=== PATIENT | male | born 1980 | race Caucasian/White ===

== ENCOUNTER 2016-09-25 14:27 | Emergency (ER) | payer SELFPAY ==
[~2016-09-25] VITALS: Ht 175.3 cm; Wt 72.1 kg
[2016-09-25] MEDS ORDERED: NKM (14:36)
[2016-09-25] MEDS ORDERED: Morphine Sulfate 2mg/ml Inj IVP ONE ×2 (14:45→16:30)
[2016-09-25 15:33] LABS: BASOPHILS % (AUTO) 0.7 % (0.0-2.0); EOSINOPHILS % (AUTO) 0.7 % (0.0-3.0); LYMPHOCYTES % (AUTO) 15.1 % (20.0-45.0); MEAN CORPUSCULAR HEMOGLOBIN 28.5 PG (27.0-31.0); MEAN CORPUSCULAR HGB CONC 32.5 G/DL (32.0-36.0); MEAN CORPUSCULAR VOLUME 88 FL (80-99); MEAN PLATELET VOLUME 7.8 FL (6.5-10.1); MONOCYTES % (AUTO) 8.1 % (1.0-10.0); NEUTROPHILS % (AUTO) 75.3 % (45.0-75.0); PLATELET COUNT 244 K/UL (150-450); RED BLOOD COUNT 5.87 M/UL (4.70-6.10); RED CELL DISTRIBUTION WIDTH 12.1 % (11.6-14.8); WHITE BLOOD COUNT 10.5 K/UL (4.8-10.8)
[2016-09-25] MEDS ORDERED: Famotidine 20 MG/ 2ML VIAL IVP ONE (15:45)
[2016-09-25 15:46] LABS: ALANINE AMINOTRANSFERASE 11 U/L (3-41); ANION GAP 16 (5-15); ASPARTATE AMINO TRANSFERASE 30 U/L (5-40); CALCIUM 10.1 mg/dL (8.6-10.2); CARBON DIOXIDE 28 mEQ/L (20-30); CHLORIDE 97 mEQ/L (98-107); CREATININE 1.2 mg/dL (0.7-1.2); GLOMERULAR FILTRATION RATE > 60 mL/min (>60); HEMOLYSIS 34; LIPASE 25 U/L (< 60); SODIUM 141 mEQ/L (135-145); TOTAL PROTEIN 8.6 g/dL (6.6-8.7)
[2016-09-25] MEDS ORDERED: PEPCID40 MG PO (16:23)
[2016-09-25] MEDS ORDERED: TYLENOL EXTRA500 MG ORAL (16:23)
[2016-09-25 17:03] VITALS: BP 121/76
--- NOTE | 2016-09-25 17:20 | Diagnostic Imaging Report ---
Indication: Chest pain Technique: One view of the chest Comparison: none Findings: Lungs and pleural spaces are clear. Heart size is normal. Impression: No acute process
--- NOTE | 2016-09-25 18:44 | Emergency Room Report ---
History of Present Illness General Chief Complaint: Abdominal Pain Source: Patient Present Illness HPI The patient is a 35-year-old male with history of HIV presenting for upper abdominal pain which began today. Patient denies any other medical conditions. Patient states pain is a 10 out of 10 dull ache to the mid upper abdomen. Patient states pain radiates "everywhere". The patient states that he has not had this type of pain before. The patient is unsure why the pain began. Patient does admit to nausea but denies vomiting, diarrhea, constipation, rash, fever, chills, sweats, chest pain, shortness of breath Allergies: Coded Allergies: No Known Allergies (Unverified , 09/25/16) Patient History Past Medical History: see triage record Pertinent Family History: none Reviewed Nursing Documentation: PMH: Agreed, PSxH: Agreed Review of Systems All Other Systems: negative except mentioned in HPI Physical Exam Vital Signs Date Time Temp Pulse Resp B/P Pulse Ox O2 Delivery O2 Flow Rate FiO2 09/25/16 14:30 97.9 116 28 100 Room Air 09/25/16 17:03 121/76 Sp02 EP Interpretation: reviewed, normal General Appearance: no apparent distress, alert, GCS 15, non-toxic Head: normocephalic, atraumatic Eyes: bilateral eye PERRL, bilateral eye normal inspection ENT: hearing grossly normal, normal pharynx, no angioedema, normal voice Neck: full range of motion, supple/symm/no masses Respiratory: chest non-tender, lungs clear, normal breath sounds, speaking full sentences Cardiovascular #1: regular rate, rhythm, no edema Gastrointestinal: normal inspection, normal bowel sounds, soft, non-distended, no guarding, tenderness - epigastric Genitourinary: normal inspection, no CVA tenderness Musculoskeletal: back normal, gait/station normal, normal range of motion, non- tender Neurologic: alert, oriented x3, responsive, motor strength/tone normal, sensory intact, speech normal Psychiatric: judgement/insight normal, memory normal, mood/affect normal, no suicidal/homicidal ideation Skin: normal color, no rash, warm/dry, well hydrated Lymphatic: no adenopathy Medical Decision Making PA Attestation Dr. Lyman is my supervising physician. Patient management was discussed with my supervising physician Diagnostic Impression: Primary Impression: Gastroenteritis ER Course The patient is a 35-year-old male presenting for upper abdominal pain which began today. Differential diagnoses considered include but not limited to gastroenteritis, pancreatitis, appendicitis, UTI, drug abuse PE: vitals WNL. afebrile. Abdomen is soft. There is tenderness to palpation over epigastric region only. No guarding. Nondistended. Normal bowel sounds Skin is warm and dry. No discoloration. Labs: CBC and CMP unremarkable. Patient refused to give urine. The patient is given IV fluids, Zofran, Pepcid, and morphine and is feeling better. The patient continuously asks for stronger pain medications but is visibly relaxing on the gurney. No apparent distress. The patient will be discharged home with a prescription for Pepcid and will follow up with primary doctor. ER precautions are given Laboratory Tests Test 09/25/16 15:15 White Blood Count 10.5 K/UL (4.8-10.8) Red Blood Count 5.87 M/UL (4.70-6.10) Hemoglobin 16.7 G/DL (14.2-18.0) Hematocrit 51.4 % (42.0-52.0) Mean Corpuscular Volume 88 FL (80-99) Mean Corpuscular Hemoglobin 28.5 PG (27.0-31.0) Mean Corpuscular Hemoglobin Concent 32.5 G/DL (32.0-36.0) Red Cell Distribution Width 12.1 % (11.6-14.8) Platelet Count 244 K/UL (150-450) Mean Platelet Volume 7.8 FL (6.5-10.1) Neutrophils (%) (Auto) 75.3 % (45.0-75.0) H Lymphocytes (%) (Auto) 15.1 % (20.0-45.0) L Monocytes (%) (Auto) 8.1 % (1.0-10.0) Eosinophils (%) (Auto) 0.7 % (0.0-3.0) Basophils (%) (Auto) 0.7 % (0.0-2.0) Sodium Level 141 mEQ/L (135-145) Potassium Level 4.0 mEQ/L (3.4-4.9) Chloride Level 97 mEQ/L (98-107) L Carbon Dioxide Level 28 mEQ/L (20-30) Anion Gap 16 (5-15) H Blood Urea Nitrogen 19 mg/dL (7-23) Creatinine 1.2 mg/dL (0.7-1.2) Estimate Glomerular Filtration Rate > 60 mL/min (>60) Glucose Level 94 mg/dL (74-106) Calcium Level 10.1 mg/dL (8.6-10.2) Total Bilirubin 0.5 mg/dL (0.0-1.2) Aspartate Amino Transferase (AST) 30 U/L (5-40) Alanine Aminotransferase (ALT) 11 U/L (3-41) Alkaline Phosphatase 75 U/L (40-129) Total Protein 8.6 g/dL (6.6-8.7) Albumin 4.5 g/dL (3.5-5.2) Globulin 4.1 g/dL Albumin/Globulin Ratio 1.0 (1.0-2.7) Lipase 25 U/L (< 60) Lab Results Impression CBC and CMP unremarkable. Patient refused to give urine. Last Vital Signs Date Time Temp Pulse Resp B/P Pulse Ox O2 Delivery O2 Flow Rate FiO2 09/25/16 17:03 97.8 78 28 121/76 100 Room Air Status: improved Disposition: HOME, SELF-CARE Condition: Improved Scripts Acetaminophen* (TYLENOL EXTRA STRENGTH*) 500 Mg Tablet 500 MG ORAL Q8H Y for Prn Headache/Temp > 101, #30 TAB 0 Refills Prov: MAX HINKLE 09/25/16 Famotidine (PEPCID) 40 Mg Tablet 40 MG PO DAILY, #7 TAB 0 Refills Prov: MAX HINKLE 09/25/16 Patient Instructions: Abdominal Pain, Adult Additional Instructions: I discussed my findings with the patient. All questions and concerns have been answered. Treatment and medication compliance have been addressed. I advised the patient that they need to follow up with PMD in 3-5 days. Return to ED if symptoms worsen, new symptoms arise, or if needed for any reason. Patient verbalized understanding of discharge instructions. MAX HINKLE Sep 25, 2016 18:42
== END 2016-09-25 17:06 | disposition home or self-care (01) ==
LOC: EMR 14:50
DX: K52.9 Noninfective gastroenteritis and colitis, unspecified (principal); R10.9 Unspecified abdominal pain
CPT/HCPCS: 36415; 71010; 80053; 83690; 85025; 96374; 96375; 99284; J2270; J2405; S0028